=== PATIENT | male | born 1970 | race Hispanic/Latino ===

== ENCOUNTER 2020-08-21 11:37 | Emergency (ER) | payer SELFPAY ==
[~2020-08-21] VITALS: Ht 170.2 cm; Wt 99.8 kg
== END 2020-08-21 13:00 | disposition home or self-care (01) ==
LOC: ER 12:15
DX: U07.1 COVID-19 (principal); R06.02 Shortness of breath; R51.9 Headache, unspecified; R53.83 Other fatigue
CPT/HCPCS: 99282